=== PATIENT | female | born 1945 | race Caucasian/White ===

== ENCOUNTER 2020-12-10 10:20 | Observation (INO) ==
[~2020-12-10 10:20] MED LIST: Buffered Lidocaine 1% SYRIN 1 ml INTRADERM ONE; Dexamethasone IV 4 MG/ML VIAL 1 ml VIAL IV SLOW PU ONE; Famotidine IV 10 MG/ML 2 ml VIAL (20 mg) IV ONE; Lactated Ringers 1000 ml BAG 1,000 ML IV SCH
[2020-12-10] MEDS ORDERED: Dexamethasone IV 4 MG/ML VIAL 1 ml VIAL ONE ×2 (10:37→11:03)
[2020-12-10] MEDS ORDERED: Buffered Lidocaine 1% SYRIN 1 ml INTRADERM ONE (10:38)
[2020-12-10] MEDS ORDERED: ceFAZolin 2 GM in NS PREMIX 2 GM/100 ML BAG IVPB ONE (10:38)
[2020-12-10] MEDS ORDERED: Famotidine IV 10 MG/ML 2 ml VIAL (20 mg) ONE (10:38)
[2020-12-10] MEDS ORDERED: Lidocaine 2% PF 5 ML VIAL ONE (11:03)
[2020-12-10] MEDS ORDERED: Ondansetron 4 mg VIAL 2 MG/ML 2 ml VIAL ONE ×3 (11:03→16:08)
[2020-12-10] MEDS ORDERED: Phenylephrine IV 10 MG/ML 1 ml VIAL ONE (11:03)
[2020-12-10] MEDS ORDERED: fentaNYL 100 mcg/2 ml 50 MCG/ML VIAL ONE (11:35)
[2020-12-10] MEDS ORDERED: Midazolam 5 mg/5 ml VIAL 1 mg/ml 5 ml VIAL (5 mg) ONE (11:35)
[2020-12-10] MEDS ORDERED: ROPIVACAINE 5 MG/ML 30 ML BTL (0.5%) ONE ×2 (11:37→14:10)
[2020-12-10] MEDS ORDERED: Propofol 10 MG/ML 20 ML BTL ONE (14:22)
[2020-12-10] MEDS ORDERED: Magnesium Hydroxide LIQ 30 ML UDC PO PRN ×2 (14:31→17:00)
[2020-12-10] MEDS ORDERED: diPHENhydraMINE IV 50 MG/ML 1 ml VIAL (BENADRYL) IV PRN ×2 (14:31→17:00)
[2020-12-10] MEDS ORDERED: Ondansetron 4 mg VIAL 2 MG/ML 2 ml VIAL IV PRN (14:31)
[2020-12-10] MEDS ORDERED: diPHENhydraMINE 25 mg TAB PO PRN ×2 (14:31→17:00)
[2020-12-10] MEDS ORDERED: Ondansetron ODT 4 mg TAB 4 MG TAB PO PRN ×2 (14:31→17:00)
[2020-12-10] MEDS ORDERED: Lactulose 30 ml UDC PO PRN ×2 (14:31→17:00)
[2020-12-10] MEDS ORDERED: Morphine 2 MG/ML SYRINGE IV PRN ×2 (14:31→17:00)
[2020-12-10] MEDS ORDERED: Albuterol HFA INHALER 8 gm MDI INH PRN (14:41)
[2020-12-10] MEDS ORDERED: Denosumab 60 MG/ML SYRINGE SUBCUT SCH (14:45)
[2020-12-10] MEDS ORDERED: Lactated Ringers 1000 ml BAG 1,000 ML IV SCH ×2 (15:00→17:00)
[2020-12-10] MEDS ORDERED: ceFAZolin 1 GM ADVAN 1 GM in NS 0.9% 50 ML 50 ML IVPB SCH (15:00)
[2020-12-10] MEDS ORDERED: Mometasone/Formoter 100/5 MDI INH SCH (18:00)
[2020-12-10] MEDS ORDERED: Magnesium Hydroxide LIQ 30 ML UDC PO SCH (21:00)
[2020-12-10] MEDS: Magnesium Hydroxide LIQ 30 ML UDC PO SCH (21:32)
[2020-12-10] MEDS: ceFAZolin 1 GM ADVAN 1 GM in NS 0.9% 50 ML 50 ML IVPB SCH (21:32)
[2020-12-11] MEDS: ceFAZolin 1 GM ADVAN 1 GM in NS 0.9% 50 ML 50 ML IVPB SCH ×2 (05:56→12:26)
[2020-12-11 07:40] VITALS: BP 122/34
[2020-12-11 08:35] LABS: ABS Lymphocytes 0.9 10^3/ul (1.0-4.8); ABS Monocytes 1.1 10^3/ul (0-0.8); Eosinophil % 0.1 %; Hematocrit 34 % (35-47); Hemoglobin 11.6 g/dL (12.0-16.0); Lymphocyte % 7.4 %; Mean Corpuscular HGB Conc 34 g/dL (31-36); Mean Corpuscular Hemoglobin 30 pg (27-31); Mean Corpuscular Volume 88 fL (80-97); Mean Platelet Volume 8.1 fL (7.4-10.4); Platelet Count 275 10^3/uL (150-450); Red Cell Distribution Width 13 % (10-15)
[2020-12-11] MEDS: Magnesium Hydroxide LIQ 30 ML UDC PO SCH (08:39)
[2020-12-11 08:55] LABS: Albumin 3.8 g/dL (3.2-5.2); Albumin/Globulin Ratio 1.7 (1-3); Globulin 2.3 g/dL (2-4); Potassium 3.7 mmol/L (3.5-5.0); Total Bilirubin 0.7 mg/dL (0.2-1.0); Total Protein 6.1 g/dL (6.4-8.9)
[2020-12-11] MEDS ORDERED: Vitamin THERAPEUTIC TAB PO SCH ×2 (09:00)
== END 2020-12-11 13:05 | disposition home or self-care (01) ==
LOC: OR 10:20 → SSU 10:20 → OR 16:47
PROVIDERS: ADMIT Orthopaedic Surgery Adult Reconstructive Orthopaedic Surgery; ATTEND Orthopaedic Surgery Adult Reconstructive Orthopaedic Surgery

== ENCOUNTER 2023-12-18 05:33 | Observation (INO) ==
[~2023-12-18 05:33] MED LIST changes: -Buffered Lidocaine 1% SYRIN 1 ml INTRADERM ONE; -Dexamethasone IV 4 MG/ML VIAL 1 ml VIAL IV SLOW PU ONE; -Famotidine IV 10 MG/ML 2 ml VIAL (20 mg) IV ONE; -Lactated Ringers 1000 ml BAG 1,000 ML IV SCH; +ROPIVACAINE 5 MG/ML 30 ML BTL (0.5%) ONE
[2023-12-18] MEDS ORDERED: Famotidine IV 10 MG/ML 2 ml VIAL (20 mg) ONE (05:55)
[2023-12-18] MEDS ORDERED: Dexamethasone IV 4 MG/ML VIAL 1 ml VIAL ONE ×3 (05:55→07:52)
[2023-12-18] MEDS ORDERED: ceFAZolin 2 GM PREMIX 2 GM/50 ML BAG ONE (05:55)
[2023-12-18 06:15] LABS: Rapid COVID-19 Molecular Undetected (Undetected)
[2023-12-18 06:41] LABS: INR 0.88 (0.85-1.14)
[2023-12-18] MEDS ORDERED: fentaNYL 100 mcg/2 ml 50 MCG/ML VIAL ONE (06:49)
[2023-12-18] MEDS ORDERED: Midazolam 2 mg/2 ml VIAL 1 mg/ml 2 ml VIAL (2 mg) ONE ×2 (06:49→07:46)
[2023-12-18] MEDS ORDERED: Sevoflurane BOTTLE ONE (06:49)
[2023-12-18] MEDS ORDERED: Phenylephrine IV 10 MG/ML 1 ml VIAL ONE (06:49)
[2023-12-18] MEDS ORDERED: Lidocaine 2% PF 5 ML VIAL ONE (06:49)
[2023-12-18] MEDS ORDERED: Ondansetron 4 mg VIAL 2 MG/ML 2 ml VIAL ONE (06:49)
[2023-12-18] MEDS ORDERED: ROPIVACAINE 5 MG/ML 30 ML BTL (0.5%) ONE ×2 (06:53→07:05)
[2023-12-18] MEDS ORDERED: fentaNYL 100 mcg/2 ml 50 MCG/ML VIAL IV PRN (07:53)
[2023-12-18] MEDS ORDERED: Naloxone 0.4 mg VIAL 0.4 mg/ml 1 ml VIAL IV PRN (07:53)
[2023-12-18] MEDS ORDERED: Metoclopramide 5 MG/ML VIAL (10 mg) ONE (08:07)
[2023-12-18] MEDS ORDERED: Calcium Carb (TUMS) 500 mg CHEW TAB PO PRN (08:45)
[2023-12-18] MEDS ORDERED: Lactulose 30 ml UDC PO PRN (08:45)
[2023-12-18] MEDS ORDERED: Magnesium Hydroxide LIQ 30 ML UDC PO PRN (08:45)
[2023-12-18] MEDS ORDERED: Bacitracin OINTMENT TUBE ONE (09:43)
[2023-12-18] MEDS ORDERED: Albuterol HFA INHALER 8 gm MDI INH PRN (10:28)
[2023-12-18] MEDS: Dexamethasone IV 4 MG/ML VIAL 1 ml VIAL IV SLOW PU ONE (12:04)
[2023-12-18] MEDS: Buffered Lidocaine 1% SYRIN 1 ml INTRADERM ONE (12:04)
[2023-12-18] MEDS: Famotidine IV 10 MG/ML 2 ml VIAL (20 mg) IV ONE (12:04)
[2023-12-18] MEDS: Magnesium Hydroxide LIQ 30 ML UDC PO SCH (12:05)
[2023-12-18] MEDS: Lactated Ringers 1000 ml BAG 1,000 ML IV SCH ×2 (12:05)
[2023-12-18] MEDS: Vitamin THERAPEUTIC TAB PO SCH (12:07)
[2023-12-18] MEDS: ceFAZolin 2 GM PREMIX 2 GM/50 ML BAG IV SCH ×2 (12:07→17:00)
[2023-12-18] MEDS: Ondansetron ODT 4 mg TAB 4 MG TAB PO PRN (17:56)
[2023-12-18] MEDS: Mometasone/Formoter 100/5 MDI INH SCH (20:28)
[2023-12-19] MEDS: Ondansetron 4 mg VIAL 2 MG/ML 2 ml VIAL IV PRN (02:42)
[2023-12-19 05:43] LABS: Hematocrit 30.9 % (35-45); Hemoglobin 10.5 g/dL (11.5-14.3); Mean Platelet Volume 7.5 fL (7.5-11.2); Platelet Count 239 10^3/uL (150-450)
[2023-12-19 05:57] LABS: Calcium 8.8 mg/dL (8.6-10.3); Creatinine, Serum 0.82 mg/dL (0.51-0.95); Potassium 4.2 mmol/L (3.5-5.0); eGFR CKD-EPI 72.7 (>60)
[2023-12-19 09:38] VITALS: BP 116/53
== END 2023-12-19 11:58 ==
LOC: OR 05:33 → SSU 05:33
PROVIDERS: ADMIT Orthopaedic Surgery Adult Reconstructive Orthopaedic Surgery; ATTEND Orthopaedic Surgery Adult Reconstructive Orthopaedic Surgery